=== PATIENT | male | born 1980 | race Caucasian/White ===

== ENCOUNTER 2019-07-12 18:13 | Inpatient (IN) | payer OTHER ==
[~2019-07-12] VITALS: Ht 177.8 cm; Wt 118.0 kg
[~2019-07-12 18:13] MED LIST: ALLERGY PILL; NEXIUM 20MG20 MG PO
[2019-07-12 19:48] LABS: COLLECTION METHOD CLEAN CATCH
[2019-07-12 19:51] LABS: BASO # 0.1 (0.0-0.2); BASO % 1.3 % (0.0-2.0); EOS # 0.5 (0.0-0.7); EOS % 5.8 % (0-4.0); GRAN # 5.2 (1.4-6.5); GRAN % 55.2 % (42.2-75.2); LYMPH # 2.6 (1.2-3.4); LYMPH % 27.7 % (20.0-51.0); MEAN CELL VOLUME 88 fl (80.0-100.0); MEAN CORPUSCULAR HGB CONC 36 g/dl (33.0-37.0); MEAN PLATELET VOLUME 10.1 fl (7.4-10.4); MONO # 0.9 (0.1-0.6); MONO % 9.8 % (1.7-9.3); PLATELET COUNT 233 K/mm3 (130-400); RED BLOOD COUNT 5.98 M/mm3 (4.20-5.60); REDCELL DISTRIBUTION WIDTH-CV 12.1 % (11.5-14.5)
[2019-07-12] MEDS ORDERED: NEURONTIN300 MG/CAP PO (19:53)
[2019-07-12] MEDS ORDERED: MULTI VITAMINS1 TAB PO (19:54)
[2019-07-12] MEDS ORDERED: KRILL OIL 3001 EACH PO (19:54)
[2019-07-12 19:55] LABS: MUCOUS Present /lpf; PH 6 (5-8); SQUAMOUS EPITHELIAL None Seen /hpf; URINE APPEARANCE Hazy; URINE BACTERIA Rare /hpf; URINE BILIRUBIN Negative (NEGATIVE); URINE BLOOD 1+ (NEGATIVE); URINE COLOR Yellow; URINE GLUCOSE Negative (NEGATIVE); URINE KETONE Trace (NEGATIVE); URINE LEUKOCYTE ESTERASE Negative (NEGATIVE); URINE NITRATE Negative (NEGATIVE); URINE PROTEIN(semi-quant) 3+ (NEGATIVE); URINE UROBILINOGEN Negative (NEGATIVE)
[2019-07-12] MEDS ORDERED: ZESTRIL 20MG TA20 MG PO (19:55)
[2019-07-12 19:56] LABS: HEMATOCRIT 52.4 % (42.0-52.0); HEMOGLOBIN 18.6 g/dl (13.5-18.0); MEAN CORPUSCULAR HEMOGLOBIN 31 pg (27.0-31.0)
[2019-07-12] MEDS ORDERED: XYZAL5 MG PO (19:56)
[2019-07-12] MEDS ORDERED: MOBIC15 MG PO (19:56)
[2019-07-12] MEDS ORDERED: NORCO 325 MG-51 TAB PO (19:57)
[2019-07-12] MEDS ORDERED: WELLBUTRIN XL300 M1 PO (19:57)
[2019-07-12] MEDS ORDERED: FLEXERIL5 MG PO (19:58)
[2019-07-12 20:04] LABS: ALANINE AMINOTRANSFERASE 22 U/L (21-72); ALBUMIN 2.6 gm/dL (3.5-5.0); ALKALINE PHOSPHATASE 79 U/L (50-136); ANION GAP 2 mmol/L (7-16); AST,SGOT 30 U/L (15-37); BILIRUBIN,TOTAL 0.5 mg/dL (0.0-1.0); BLOOD UREA NITROGEN 21 mg/dL (9-20); CALCIUM 8.3 mg/dL (8.4-10.2); CARBON DIOXIDE 25 mmol/L (22-30); CHLORIDE 105 mmol/L (98-107); GLUCOSE 93 mg/dL (74-106); SODIUM 132 mmol/L (137-145); TOTAL PROTEIN 5.5 gm/dL (6.4-8.2)
[2019-07-12 20:10] LABS: C-REACTIVE PROTEIN < 0.5 mg/dL (0.0-0.9)
[2019-07-12 20:14] LABS: TROPONIN-I < 0.012 ng/mL (0.000-0.035)
[2019-07-12 20:37] LABS: INR 0.9 (0.8-3.0); PROTHROMBIN TIME 10.6 SECONDS (9.7-12.8)
[2019-07-12 20:39] LABS: PARTIAL THROMBOPLASTIN TIME 36.9 SECONDS (26.0-37.0)
[2019-07-12 21:54] VITALS: BP 143/95; PULSE 112; TEMP 98.5
[2019-07-12] MEDS ORDERED: LASIX 20MG TABL20 MG PO (22:12)
[2019-07-12] MEDS ORDERED: [UNRECOGNIZED DRUG - OTHER] (22:12)
[2019-07-13 00:18] VITALS: BP 124/74; PULSE 103; TEMP 97.9
--- NOTE | 2019-07-13 01:10 | NUR ---
patient up to room 329 at 2145. alert and oriented. ambulated to bed without issue. lung sounds clear. tachycardic. signigicant edema to BLE and hands. prn norco given for c/o headache and back and lle pain. patient states he does not want heparin shot due to being scared of needles, however agrees after patient teaching regarding blood clots. patient ate some snacks and ordered pizza for dinner. brother at bedside most of night. no further needs at this time. will continue to monitor.
[2019-07-13 01:42] LABS: URINE PROTEIN:CREAT RATIO 41.36 (0.00-0.14)
[2019-07-13 04:10] VITALS: BP 107/61; PULSE 92; TEMP 97.7
[2019-07-13 07:35] LABS: BASO # 0.1 (0.0-0.2); BASO % 1.2 % (0.0-2.0); EOS # 0.5 (0.0-0.7); EOS % 7.3 % (0-4.0); GRAN # 2.8 (1.4-6.5); GRAN % 42.5 % (42.2-75.2); HEMATOCRIT 49.3 % (42.0-52.0); HEMOGLOBIN 16.8 g/dl (13.5-18.0); LYMPH # 2.4 (1.2-3.4); LYMPH % 36.3 % (20.0-51.0); MEAN CELL VOLUME 90 fl (80.0-100.0); MEAN CORPUSCULAR HEMOGLOBIN 31 pg (27.0-31.0); MEAN CORPUSCULAR HGB CONC 34 g/dl (33.0-37.0); MEAN PLATELET VOLUME 10.3 fl (7.4-10.4); MONO # 0.8 (0.1-0.6); MONO % 12.5 % (1.7-9.3); PLATELET COUNT 218 K/mm3 (130-400); RED BLOOD COUNT 5.51 M/mm3 (4.20-5.60); REDCELL DISTRIBUTION WIDTH-CV 12.3 % (11.5-14.5)
[2019-07-13 07:46] LABS: ALBUMIN 2.3 gm/dL (3.5-5.0); BILIRUBIN,TOTAL 0.3 mg/dL (0.0-1.0); CALCIUM 7.8 mg/dL (8.4-10.2); CREATININE, serum 1.13 (0.66-1.25); MAGNESIUM 2.2 mg/dL (1.6-2.3); POTASSIUM 4.1 mmol/L (3.4-5.0); TOTAL PROTEIN 4.9 gm/dL (6.4-8.2)
[2019-07-13 07:51] LABS: CHOLESTEROL RISK RATIO 12.3
[2019-07-13 08:07] VITALS: BP 144/97; PULSE 93; TEMP 97.7
[2019-07-13 11:55] VITALS: BP 129/80; PULSE 93; TEMP 98
[2019-07-13 12:09] LABS: HIV 1/2 Antibodies Non-Reactive; HIV-1p24 Antigen Non-Reactive
[2019-07-13 14:37] LABS: URIC ACID 8.8 mg/dL (3.5-8.5)
[2019-07-13 15:08] LABS: TSH w REFLEX 2.03 uIU/mL (0.465-4.680)
[2019-07-13 16:00] VITALS: BP 147/92; PULSE 88; TEMP 98.7
--- NOTE | 2019-07-13 18:00 | NUR ---
Back pain relieved with prn [place]. Generalized edema. SCD's on bilaterally. Labs done. New medications started per order.
[2019-07-13 20:16] VITALS: BP 131/81; PULSE 72; TEMP 97.6
[2019-07-14] VITALS (7 sets, daily range): BP systolic 115–146; BP diastolic 60–110; PULSE 77–109; TEMP 97.3–97.9
--- NOTE | 2019-07-14 02:44 | NUR ---
patient doing well tonight, c/o moderate pain to back and ble. prn norco given. initiated 24 hour urine and patient teaching done. took scheduled medications without issue. wearing SCDs. teaching done regarding need for occult stool, patient has yet to have BM. no further needs at this time. will continue to monitor.
--- NOTE | 2019-07-14 09:00 | NUR ---
Ambulatory in halls by self. Complained of headache. Generalized edema. 24 hour urine in progress.
--- NOTE | 2019-07-14 09:11 | NUR ---
Patient lives alone in [place], [place] and plans to return home upon recovery. Patient is independent with daily living activities and works as a [employer] for [employer] in [place], [place]. Patient receives support as needed from his friend Kristi Reyna ([phone]) and his brother Alec Greene ([phone]). Patient has no durable medical equipment anticipated needs, his primary care physician is Lana Pratt, his pharamcy is Brendan[facility]yady ([place]), and he does not have advance directives completed at this time. office services associate will follow as needed.
[2019-07-14 09:25] LABS: BASO # 0.1 (0.0-0.2); BASO % 0.7 % (0.0-2.0); EOS # 0.1 (0.0-0.7); EOS % 1.5 % (0-4.0); GRAN # 5.8 (1.4-6.5); GRAN % 60.6 % (42.2-75.2); HEMATOCRIT 51.8 % (42.0-52.0); LYMPH # 2.8 (1.2-3.4); LYMPH % 29.2 % (20.0-51.0); MEAN CELL VOLUME 90 fl (80.0-100.0); MEAN CORPUSCULAR HEMOGLOBIN 31 pg (27.0-31.0); MEAN CORPUSCULAR HGB CONC 35 g/dl (33.0-37.0); MEAN PLATELET VOLUME 10.2 fl (7.4-10.4); MONO # 0.7 (0.1-0.6); MONO % 7.7 % (1.7-9.3); PLATELET COUNT 236 K/mm3 (130-400); RED BLOOD COUNT 5.79 M/mm3 (4.20-5.60); REDCELL DISTRIBUTION WIDTH-CV 12.3 % (11.5-14.5)
[2019-07-14 09:45] LABS: ALBUMIN 2.5 gm/dL (3.5-5.0); BILIRUBIN,TOTAL 0.3 mg/dL (0.0-1.0); CALCIUM 7.9 mg/dL (8.4-10.2); CREATININE, serum 1.04 (0.66-1.25); POTASSIUM 4.4 mmol/L (3.4-5.0); TOTAL PROTEIN 5.4 gm/dL (6.4-8.2)
--- NOTE | 2019-07-14 11:00 | NUR ---
[place] given for c/o back pain. Ambulatory in room.
--- NOTE | 2019-07-14 18:00 | NUR ---
No complaints. States has been thirsty and drinking more water today. Has ambulated several times in halls.
[2019-07-14 18:39] LABS: COMPLEMENT-C3 147 mg/dL (79-152); COMPLEMENT-C4 46 mg/dL (18-55)
[2019-07-15] VITALS (29 sets, daily range): BP systolic 100–164; BP diastolic 50–86; PULSE 63–115; TEMP 97.3–98.8
[2019-07-15 07:45] LABS: BASO # 0.1 (0.0-0.2); BASO % 0.8 % (0.0-2.0); EOS # 0.3 (0.0-0.7); EOS % 2.5 % (0-4.0); GRAN # 5.2 (1.4-6.5); GRAN % 52.5 % (42.2-75.2); HEMATOCRIT 48.7 % (42.0-52.0); HEMOGLOBIN 16.6 g/dl (13.5-18.0); LYMPH # 3.5 (1.2-3.4); LYMPH % 35.3 % (20.0-51.0); MEAN CELL VOLUME 91 fl (80.0-100.0); MEAN CORPUSCULAR HEMOGLOBIN 31 pg (27.0-31.0); MEAN CORPUSCULAR HGB CONC 34 g/dl (33.0-37.0); MEAN PLATELET VOLUME 10.6 fl (7.4-10.4); MONO # 0.9 (0.1-0.6); MONO % 8.6 % (1.7-9.3); PLATELET COUNT 226 K/mm3 (130-400); RED BLOOD COUNT 5.37 M/mm3 (4.20-5.60); REDCELL DISTRIBUTION WIDTH-CV 12.8 % (11.5-14.5)
[2019-07-15 08:12] LABS: ALBUMIN 2.4 gm/dL (3.5-5.0); BILIRUBIN,TOTAL 0.3 mg/dL (0.0-1.0); CALCIUM 7.6 mg/dL (8.4-10.2); CREATININE, serum 1.21 (0.66-1.25); POTASSIUM 4.1 mmol/L (3.4-5.0); TOTAL PROTEIN 5.1 gm/dL (6.4-8.2)
[2019-07-15 08:24] LABS: URINE PROTEIN:CREAT RATIO 5.97 (0.00-0.14)
--- NOTE | 2019-07-15 09:09 | NUR ---
Initial visit; Patient thanked Dental Billing Specialist for looking in on him and letting him know of the availability of spiritual care at [place].
--- NOTE | 2019-07-15 10:43 | NUR ---
PT RESTING QUIETLY IN BED WAITING FOR PROCEEDURE VISITING WITH FRIENDS. PT UP TO SHOWER INDEPENDENTLY. CLEAN GOWN PROVIDED BY [employer]. PT SHOWERED AND THEN RETURNED TO BED. DENIES NEEDS AT THIS TIME. VSS.
--- NOTE | 2019-07-15 13:20 | NUR ---
pt to ct per bed. Pt ambulates into room. Pt placed on CT table in prone position. Monitors applied and O2 on at 2l/nc. Pt very anxious. Talking with pt to help relax pt.
--- NOTE | 2019-07-15 13:48 | NUR ---
Dr Brody obtained specimen and placed in ghislaine dish. Nurse carries specimen to Dr Brice, pathologists. Dr Brice states we have sufficient cells.
[2019-07-15 14:31] LABS: URINE HOURS (UPEP) 24 (())
--- NOTE | 2019-07-15 17:01 | NUR ---
PT VOIDED 600 CLEAR YELLOW URINE.
[2019-07-15 19:58] LABS: HEPATITIS B SURFACE ANTIBODY <2.0 (()); HEPATITIS B SURFACE ANTIGEN Negative (Negative)
[2019-07-15 19:59] LABS: HEPATITIS C VIRUS ANTIBODY Negative (Negative)
--- NOTE | 2019-07-15 20:30 | NUR ---
Pt. laying in bed at this time. Pt. is A&OX3, assessment complete. INT to lt. ac patent. Bandaid to lt. flank from kidney bx, Bandaid CDI. Pt. reported pain at a 6 on pain scale earlier, gave pain meds. Pt. reports pain has improved. Pt. denies further needs, call light within reach.
[2019-07-16 00:51] VITALS: BP 99/47; PULSE 73; TEMP 97.8
[2019-07-16 04:07] VITALS: BP 124/64; PULSE 80; TEMP 97.5
[2019-07-16 07:18] VITALS: BP 126/61; PULSE 92; TEMP 97.8
[2019-07-16 07:44] LABS: BASO # 0.1 (0.0-0.2); BASO % 1.2 % (0.0-2.0); EOS # 0.3 (0.0-0.7); EOS % 3.1 % (0-4.0); GRAN # 4.9 (1.4-6.5); GRAN % 46.1 % (42.2-75.2); HEMATOCRIT 48.4 % (42.0-52.0); HEMOGLOBIN 16.6 g/dl (13.5-18.0); LYMPH # 4.3 (1.2-3.4); LYMPH % 40.7 % (20.0-51.0); MEAN CELL VOLUME 90 fl (80.0-100.0); MEAN CORPUSCULAR HEMOGLOBIN 31 pg (27.0-31.0); MEAN CORPUSCULAR HGB CONC 34 g/dl (33.0-37.0); MONO # 0.9 (0.1-0.6); MONO % 8.5 % (1.7-9.3); PLATELET COUNT 265 K/mm3 (130-400); RED BLOOD COUNT 5.37 M/mm3 (4.20-5.60); REDCELL DISTRIBUTION WIDTH-CV 12.8 % (11.5-14.5)
[2019-07-16 07:55] LABS: CALCIUM 7.7 mg/dL (8.4-10.2); CREATININE, serum 1.11 (0.66-1.25); POTASSIUM 4.2 mmol/L (3.4-5.0)
[2019-07-16] MEDS ORDERED: VITAMIND3 5000 PO (08:17)
[2019-07-16 10:01] LABS: URINE PROTEIN:CREAT RATIO 3.87 (0.00-0.14)
[2019-07-16] MEDS ORDERED: LIPITOR 40MG TA40 MG PO (10:40)
[2019-07-16] MEDS ORDERED: BUMEX 1MG TA1 MG/TA1 PO (10:41)
[2019-07-16] MEDS ORDERED: PREDNISONE20 MG PO (10:41)
[2019-07-16] MEDS ORDERED: ZESTRIL 10MG10 MG PO (10:43)
[2019-07-16 11:08] VITALS: BP 131/72; PULSE 91; TEMP 97.8
[2019-07-16] MEDS ORDERED: PERCOCET 325 MG1 TA2 PO (11:12)
--- NOTE | 2019-07-16 13:31 | NUR ---
Hospitalist Program Director attended clinical rounds with the team. Patient to discharge home today. No additional concerns at this time.
--- NOTE | 2019-07-16 15:20 | NUR ---
DISCHARGE INSTRUCTIONS PROVIDED TO PT QUESTIONS SOLICITED AND ANSWERED. PT TAKEN BY WHEEL CHAIR TO FRONT.
[2019-07-16 19:37] LABS: URIN CONCENTRATION 24HR (UPEP) 784 mg/dL (()); URINE PROTEIN 24HR (UPEP) 18620 mg/24 h (<229)
== END 2019-07-16 15:15 | disposition home or self-care (01) | DRG 700 ==
LOC: COL.ER 18:13 → JCC 20:42
PROVIDERS: Emergency Medicine; Internal Medicine Nephrology; Student in an Organized Health Care Education/Training Program; ADMIT Internal Medicine
PROC: 0TB13ZX Excision of Left Kidney, Percutaneous Approach, Diagnostic (ICD-10-PCS; principal; 2019-07-15)
DX: N05.9 Unspecified nephritic syndrome with unspecified morphologic changes (principal); I10 Essential (primary) hypertension; K21.9 Gastro-esophageal reflux disease without esophagitis; G89.29 Other chronic pain; M54.9 Dorsalgia, unspecified; F17.210 Nicotine dependence, cigarettes, uncomplicated; E78.5 Hyperlipidemia, unspecified; E88.09 Other disorders of plasma-protein metabolism, not elsewhere classified; E66.9 Obesity, unspecified; R00.0 Tachycardia, unspecified; Z68.37 Body mass index [BMI] 37.0-37.9, adult; Z79.891 Long term (current) use of opiate analgesic; Z88.2 Allergy status to sulfonamides
CPT/HCPCS: 99222-AI; 99232-AI; 99239; J1644; J1650; J2250; J3010; J7050; J7512

== ENCOUNTER 2019-11-01 16:37 | Emergency (ER) | payer OTHER ==
[~2019-11-01] VITALS: Ht 177.8 cm; Wt 122.7 kg
[~2019-11-01 16:37] MED LIST changes: +BUMEX 1MG TA1 MG/TA1 PO; +FLEXERIL5 MG PO; +KRILL OIL 3001 EACH PO; +LASIX 20MG TABL20 MG PO; +LIPITOR 40MG TA40 MG PO; +MOBIC15 MG PO; +MULTI VITAMINS1 TAB PO; +NEURONTIN300 MG/CAP PO; +NORCO 325 MG-51 TAB PO; +PERCOCET 325 MG1 TA2 PO; +PREDNISONE20 MG PO; +VITAMIND3 5000 PO; +WELLBUTRIN XL300 M1 PO; +XYZAL5 MG PO; +ZESTRIL 10MG10 MG PO; +ZESTRIL 20MG TA20 MG PO; +[UNRECOGNIZED DRUG - OTHER]
[2019-11-01 16:46] VITALS: TEMP 97.6
[2019-11-01 17:13] LABS: BASO % 0.3 % (0.0-2.0); EOS % 0.1 % (0-4.0); GRAN # 7.9 (1.4-6.5); GRAN % 74.5 % (42.2-75.2); HEMATOCRIT 41.6 % (42.0-52.0); HEMOGLOBIN 14.4 g/dl (13.5-18.0); MEAN CELL VOLUME 95 fl (80.0-100.0); MEAN CORPUSCULAR HEMOGLOBIN 33 pg (27.0-31.0); MEAN CORPUSCULAR HGB CONC 35 g/dl (33.0-37.0); MONO # 0.6 (0.1-0.6); MONO % 5.7 % (1.7-9.3); PLATELET COUNT 247 K/mm3 (130-400); REDCELL DISTRIBUTION WIDTH-CV 13.3 % (11.5-14.5)
[2019-11-01 17:20] LABS: ALANINE AMINOTRANSFERASE 30 U/L (4-49); ALBUMIN 4.1 gm/dL (3.5-5.0); ALKALINE PHOSPHATASE 86 U/L (50-136); ANION GAP 9 mmol/L (7-16); AST,SGOT 31 U/L (15-37); BILIRUBIN,TOTAL 0.7 mg/dL (0.0-1.0); BLOOD UREA NITROGEN 16 mg/dL (9-20); CALCIUM 9.2 mg/dL (8.4-10.2); CARBON DIOXIDE 30 mmol/L (22-30); CHLORIDE 97 mmol/L (98-107); CREATININE, serum 1.13 (0.66-1.25); GLUCOSE 172 mg/dL (74-106); MAGNESIUM 2.2 mg/dL (1.6-2.3); POTASSIUM 3.5 mmol/L (3.4-5.0); SODIUM 137 mmol/L (137-145)
[2019-11-01 17:29] LABS: INR 1.5 (0.8-3.0); PROTHROMBIN TIME 16.6 SECONDS (9.7-12.8)
[2019-11-01 17:32] LABS: PARTIAL THROMBOPLASTIN TIME 45.4 SECONDS (26.0-37.0); TROPONIN-I < 0.012 ng/mL (0.000-0.035)
[2019-11-01 19:30] VITALS: BP 121/78; PULSE 89
== END 2019-11-01 19:40 | disposition home or self-care (01) ==
LOC: COL.ER 16:37
PROVIDERS: Family Medicine
DX: I95.9 Hypotension, unspecified (principal); I10 Essential (primary) hypertension; Z86.718 Personal history of other venous thrombosis and embolism
CPT/HCPCS: J7030; Q9967

== ENCOUNTER 2020-04-10 09:31 | Day surgery (SDC) | payer OTHER ==
[~2020-04-10] VITALS: Ht 180.3 cm; Wt 130.0 kg
[2020-04-10 10:12] VITALS: BP 136/90; PULSE 90; TEMP 98.5
[2020-04-10] MEDS ORDERED: LIPITOR 40MG TA40 MG PO (10:37)
[2020-04-10] MEDS ORDERED: NEXIUM 40MG40 MG PO (10:39)
[2020-04-10] MEDS ORDERED: XARELTO20 MG PO (10:41)
[2020-04-10] MEDS ORDERED: PREDNISONE 5MG5 MG PO (10:42)
[2020-04-10] MEDS ORDERED: ZESTRIL 20MG TA20 MG PO (10:43)
[2020-04-10] MEDS ORDERED: PERCOCET 325 MG1 TA3 PO (10:43)
[2020-04-10] MEDS ORDERED: LOVENOX 100100 MG/ML SQ (10:48)
[2020-04-10 11:30] VITALS: BP 140/77; PULSE 76
--- NOTE | 2020-04-10 11:30 | NUR ---
Patient brought back to room 1 via cart. Ambulated to bed without difficulty. Trudy at bedside for report. Warm blanket provided. Father at bedside. Patient denies pain or nausea. Placed on monitors, vital signs stable. IV infusing into left AC without difficulty. Requests juice. Call randle within reach. Will continue to monitor.
[2020-04-10 11:45] VITALS: BP 111/69; PULSE 73
--- NOTE | 2020-04-10 11:45 | NUR ---
Patient states he is feeling well and ready to go home. Tolerating drink without difficulty. MD at bedside to go over results with patient and father. Will continue to monitor.
--- NOTE | 2020-04-10 11:53 | NUR ---
IV removed without difficulty from Left AC. Intact.
[2020-04-10 12:00] VITALS: BP 120/73; PULSE 72
--- NOTE | 2020-04-10 12:00 | NUR ---
Discharge instructions reviewed with patient. All questions answered.
--- NOTE | 2020-04-10 12:05 | NUR ---
Patient brought down to lobby via wheel chair. All belongings in hand. Patients father to drive him home.
== END 2020-04-10 12:05 | disposition home or self-care (01) ==
LOC: SDCO 09:31
DX: K21.9 Gastro-esophageal reflux disease without esophagitis (principal); K44.9 Diaphragmatic hernia without obstruction or gangrene; Z12.11 Encounter for screening for malignant neoplasm of colon; D12.5 Benign neoplasm of sigmoid colon; I82.409 Acute embolism and thrombosis of unspecified deep veins of unspecified lower extremity; N05.9 Unspecified nephritic syndrome with unspecified morphologic changes; Z20.828 Contact with and (suspected) exposure to other viral communicable diseases; Z79.01 Long term (current) use of anticoagulants; Z88.2 Allergy status to sulfonamides
CPT/HCPCS: J2704; J7030